=== PATIENT | male | born 1990 | race Caucasian/White ===

== ENCOUNTER 2019-10-19 10:42 | Emergency (ER) | payer MEDICAID, OTHER ==
[~2019-10-19] VITALS: Ht 180.3 cm; Wt 92.5 kg
[~2019-10-19 10:42] MED LIST: BAC15O TP; FLO0.4C PO
--- NOTE | 2019-10-19 11:27 | NUR ---
PT WANTS MEDICAL PHYSICAL TO CONTINUE OUTPATIENT TREATMENT. PT HAS BEEN IN TREATEMENT FOR 305 DAYS.
[2019-10-19 12:33] VITALS: BP 150/84
== END 2019-10-19 12:34 | disposition home or self-care (01) ==
LOC: ER 10:42
DX: Z02.89 Encounter for other administrative examinations (principal); Z79.899 Other long term (current) drug therapy
CPT/HCPCS: 99281

== ENCOUNTER 2024-01-12 19:17 | Emergency (ER) | payer MEDICAID ==
[~2024-01-12] VITALS: Ht 180.3 cm; Wt 90.9 kg
[~2024-01-12 19:17] MED LIST changes: +ALBU8.5H17 IH
[2024-01-13] MEDS ORDERED: ACET-812 PO (00:21)
[2024-01-13] MEDS ORDERED: IBUP-1984 PO (00:21)
[2024-01-13 00:29] VITALS: BP 146/111; PULSE 76; RESP 16; TEMP 98.3; O2SAT 97
[2024-01-19] MEDS ORDERED: PROP10TA10 PO (10:45)
[2024-01-19] MEDS ORDERED: FLUO-81 PO (10:45)
[2024-01-19] MEDS ORDERED: GABA-530 PO (10:45)
[2024-01-19] MEDS ORDERED: BUPR1FIL5 SL (10:45)
== END 2024-01-13 00:30 | disposition home or self-care (01) ==
LOC: ER 19:18
DX: S42.252A Displaced fracture of greater tuberosity of left humerus, initial encounter for closed fracture (principal); Z79.1 Long term (current) use of non-steroidal anti-inflammatories (NSAID); Z79.2 Long term (current) use of antibiotics; Z79.899 Other long term (current) drug therapy; W19.XXXA Unspecified fall, initial encounter; Y93.89 Activity, other specified; Y92.89 Other specified places as the place of occurrence of the external cause; Y99.8 Other external cause status
CPT/HCPCS: 73030; 99283; A4565

== ENCOUNTER 2024-01-20 11:58 | Day surgery (SDC) | payer MEDICAID ==
[2024-01-19 10:52] LABS: BASOPHILS % (AUTO) 0.4 % (0-1); EOSINOPHILS # (AUTO) 0.1 X10'3 (0-0.9); EOSINOPHILS % (AUTO) 1.7 % (0-6); LYMPHOCYTES # (AUTO) 2.2 X10'3 (1.1-4.8); LYMPHOCYTES % (AUTO) 28.7 % (21-51); MEAN CORPUSCULAR HEMOGLOBIN 31.4 PG (27.0-31.0); MEAN CORPUSCULAR HGB CONC 34.8 g/dL (33.0-36.5); MEAN PLATELET VOLUME 7.7 FL (7.4-10.4); MONOCYTES # (AUTO) 0.7 X10'3 (0-0.9); MONOCYTES % (AUTO) 9.5 % (2-12); NEUTROPHILS # (AUTO) 4.6 X10'3 (1.8-7.7); NEUTROPHILS % (AUTO) 59.7 % (42-75); PRE OP HEMATOCRIT 38.2 % (42.0-52.0); PRE OP HEMOGLOBIN 13.3 g/dL (14.0-17.9); PRE OP PLATELET COUNT 257 X10'3 (140-440); PRE OP WHITE BLOOD COUNT 7.8 10'3 (4.8-10.8); RED BLOOD COUNT 4.25 X10'6 (4.70-6.10); RED CELL DISTRIBUTION WIDTH 13.2 % (11.5-14.5)
[2024-01-19 11:01] LABS: ALBUMIN 3.4 G/DL (3.4-5.0); ALBUMIN/GLOBULIN RATIO 0.9 (1.1-1.5); ALKALINE PHOSPHATASE 80 IU/L (46-116); BLOOD UREA NITROGEN 17 MG/DL (7-18); BUN/CREATININE RATIO 18.1 (10.0-20.0); CALCIUM 8.1 MG/DL (8.5-10.1); CHLORIDE 103 MMOL/L (99-107); CREATININE 0.94 MG/DL (0.60-1.10); PRE OP ALT 17 U/L (30-65); PRE OP ANION GAP 6 (8-16); PRE OP AST 13 U/L (10-37); PRE OP BILIRUB, TOTAL 0.4 MG/DL (0.0-1.0); PRE OP GLUCOSE 89 MG/DL (70-104); PRE OP SODIUM 138 MMOL/L (135-145); TOTAL CARBON DIOXIDE 29.3 MMOL/L (24-32); TOTAL PROTEIN 7.4 G/DL (6.4-8.2); eGFR > 90 ML/MIN
[2024-01-20] VITALS (15 sets, daily range): BP systolic 118–156; BP diastolic 74–99; PULSE 52–105; RESP 7–17; TEMP 97.2; O2SAT 90–100
[~2024-01-20] VITALS: Ht 177.8 cm; Wt 10.0 kg
[2024-01-20] MEDS: cefazolin 2gm/D5W 100mL 100 ML IV ONE (05:30)
[~2024-01-20 11:58] MED LIST changes: -ALBU8.5H17 IH; -BAC15O TP; +BUPR1FIL5 SL; +DOCUMENT DATE & TIME OF BETA-BLOCKER PO ONE; -FLO0.4C PO; +FLUO-81 PO; +GABA-530 PO; +PROP10TA10 PO
[2024-01-20] MEDS ORDERED: OLAN2.5T28 PO (12:41)
[2024-01-20] MEDS: famotidine 20mg tablet PO ONE (12:47)
[2024-01-20] MEDS: ringers solution, lacted 1,000 ML IV SCH (12:47)
[2024-01-20] MEDS ORDERED: vancomycin 1,000mg inj ONE (13:29)
[2024-01-20] MEDS ORDERED: BUPIVAcaine 2.5mg/ml inj 50ml vial (contains preservative) ONE (13:29)
[2024-01-20] MEDS ORDERED: MIDAZolam 1 MG/ML 5ML VIAL ONE (13:57)
[2024-01-20] MEDS ORDERED: ROPIVAcaine 0.5% (5mg/ml) 30ml vial ONE (13:58)
[2024-01-20] MEDS ORDERED: propofol inj 20 ML IV ONE (13:58)
[2024-01-20] MEDS ORDERED: morphine 10mg/ml inj. ONE ×2 (13:58)
[2024-01-20] MEDS ORDERED: LIDOcaine 2% (20mg/ml) 5ml vial ONE (13:58)
[2024-01-20] MEDS ORDERED: acetaminophen 1,000mg/100ml IV 100 ML IV ONE (14:01)
[2024-01-20] MEDS ORDERED: sevoflurane 250ml liquid IH ONE (15:39)
[2024-01-20] MEDS ORDERED: ondansetron/PF 4mg/2ml inj ONE (16:02)
[2024-01-20] MEDS ORDERED: dexamethasone sod phosphate 4mg/ml inj. ONE (16:02)
[2024-01-20] MEDS ORDERED: morphine 2 MG/ML inj. syringe IV PRN (16:20)
[2024-01-20] MEDS ORDERED: labetalol 20mg/4ml (5mg/ml) syringe IV PRN (16:20)
[2024-01-20] MEDS ORDERED: morphine 4 MG/ML inj SYRINge IV PRN (16:20)
[2024-01-20] MEDS ORDERED: ringers solution, lacted 1,000 ML IV SCH (16:20)
[2024-01-20] MEDS ORDERED: ondansetron/PF 4mg/2ml inj IV PRN (16:20)
[2024-01-20] MEDS ORDERED: fentaNYL/PF 50MCG/1 ML 2ML syringe IV PRN ×2 (16:20)
[2024-01-20] MEDS ORDERED: hydrALAZINE 20mg/ml inj. IV PRN (16:20)
[2024-01-20] MEDS ORDERED: tranexamic acid 100mg/ml inj. ONE (16:38)
== END 2024-01-20 19:10 | disposition home or self-care (01) ==
LOC: PAS 11:58
PROVIDERS: ATTEND Orthopaedic Surgery Orthopaedic Trauma
DX: S42.252A Displaced fracture of greater tuberosity of left humerus, initial encounter for closed fracture (principal); G89.18 Other acute postprocedural pain; I10 Essential (primary) hypertension; F12.90 Cannabis use, unspecified, uncomplicated; Z87.891 Personal history of nicotine dependence; Z79.899 Other long term (current) drug therapy; Z98.890 Other specified postprocedural states; Z83.3 Family history of diabetes mellitus; Z80.9 Family history of malignant neoplasm, unspecified; X58.XXXA Exposure to other specified factors, initial encounter; Y93.89 Activity, other specified; Y92.89 Other specified places as the place of occurrence of the external cause; Y99.8 Other external cause status
CPT/HCPCS: 23630; 36415; 64415; 73060; 80053; 82948; 85025; A6222; C1713; J0131; J0690; J1100; J2250; J2274; J2405; J2704; J2795; J3370; J3490; J7030; J7120; Z7506; Z7508; Z7512; 76000; A4565; A4615; A4618; A6258; A6449; A7000

== ENCOUNTER 2025-08-20 06:26 | Emergency (ER) | payer MEDICAID ==
[~2025-08-20] VITALS: Ht 180.3 cm; Wt 101.4 kg
[~2025-08-20 06:26] MED LIST changes: -DOCUMENT DATE & TIME OF BETA-BLOCKER PO ONE; +OLAN2.5T77 PO
--- NOTE | 2025-08-20 09:28 | Physician Documentation ---
History of Present Illness ~ Chief Complaint: Abscess Stated Complaint: DENTAL ABSCESS Time Seen by MD: 09:04 OK to notify your PCP?: No Primary Medical Doctor: No PMD Source: patient Mode of Arrival: POV Exam Limitations: no limitations HPI Patient presents secondary to tooth problem. He has a broken tooth right lower quadrant and last night noted facial swelling. Has tried Orajel but no other interventions. He states he has had a broken tooth for quite some time. Does not have a dentist. No fevers or chills. No difficulty swallowing or breathing. No shortness a breath. Complaining of associated headaches. Tetanus Within 5 Years: Yes Medication Reconciliation Allergies: Coded Allergies: No Known Allergies (Unverified , 08/20/25) Scheduled Buprenorphine Hcl/Naloxone Hcl (Suboxone 4 Mg-1 Mg Sl Film), 1 STRIP SL ONCE, (Reported) Fluoxetine Hcl (Fluoxetine Hcl), 1 CAP PO QPM, (Reported) Olanzapine (Olanzapine), 1 TAB PO HS, (Reported) Penicillin V Potassium* (Penicillin VK*), 500 MG PO QID Propranolol Hcl* (Inderal*), 1 TAB PO QPM, (Reported) Scheduled PRN Gabapentin (Gabapentin), 1 CAP PO PRN PRN for pain, (Reported) Ibuprofen* (Motrin*), 600 MG PO TID PRN for pain Past Medical History Past Medical History: No Pertinent History Past Surgical History: noncontributory Smoking Status: Current every day smoker (vapes) Alcohol Use: Sober Drug Use: none Lives with: Family Lives In: Home 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 No apparent distress Oral exam: There is a broken tooth noted to the right lower quadrant molar. Has facial swelling. No definite abscess on palpation. No erythema of the gingiva. Posterior pharynx is without erythema or swelling. There is no tonsillar exudate. Respiratory: Lungs are clear to auscultation bilaterally. No respiratory distress. Chest: Normal shape and size. No accessory muscle use. Cardiovascular: Regular rate and rhythm. S1-S2. No murmur, gallop, rub. Psychiatric: Normal mood and affect. Skin: Normal color. Warm and dry. Progress Results/Orders Results/Orders Completed Orders - HANK ALBA NP Penicillin V Potassium Tablet (Penicilli (08/20/25 09:30) Ibuprofen Tablet (Motrin Tablet) (08/20/25 09:30) Ibuprofen Tablet (Motrin Tablet) (08/20/25 09:35) Medications Received in ER Medications (Trade) Dose Ordered Sig/Daphne Route PRN Reason Start Time Stop Time Status Last Admin Dose Admin (penicillin V potassium tablet) 500 mg ONCE ONCE PO 08/20/25 09:30 08/20/25 09:33 DC 08/20/25 09:40 500 MG (Motrin tablet) 600 mg ONCE ONCE PO 08/20/25 09:35 08/20/25 09:36 DC 08/20/25 09:40 600 MG Vital Signs 08/20/25 08/20/25 06:28 09:53 Temp 98.5 98.5 Pulse 85 80 Resp 18 16 B/P (MAP) 157/105 174/121 Pulse Ox 98 98 O2 Flow Rate 0 Medical Decision Making Additional information obtaine: N/A Findings Patient presents with right-sided facial pain and broken tooth. The tooth has been broken for some time but he has not had this problem. At night onset facial swelling. There is no difficulty swallowing. No evidence of peritonsillar abscess, Bernard's angina or any other acute emergency. Recommended ice, warm salt water rinses, ibuprofen and given antibiotics. Warning signs and symptoms were reviewed and reasons for return. Recommend that he follow up with a dentist. Differential Dx:Considerations: Include: Abscess, Other Departure Time of Disposition: 09:32 Impression: Primary Impression: Dental abscess Condition: Stable Discharge Instructions: Dental Abscess, [id number] Additional Instructions: I highly recommend that you get a dentist to take care of your tooth. In the meantime I recommend warm salt water rinses which can help with pain and discom fort. Take ibuprofen for pain. Take with food. Take your antibiotics as prescribed and to completion. You should not have leftover antibiotics. Return for worsening swelling, difficulty breathing or difficulty swallowing or any other concerns. One or more of your blood pressures was greater than 130/80. I recommend that you follow up with the primary care provider. Recommend home blood pressure monitoring. Referrals: NO PRIMARY CARE PROVIDER (PCP) Prescriptions Ibuprofen* (Motrin*) 400 Mg Tablet 600 MG PO TID PRN for pain, #20 TAB Prov: HANK ALBA NP 08/20/25 Penicillin V Potassium* (Penicillin VK*) 500 Mg Tablet 500 MG PO QID, #40 TAB Prov: HANK ALBA NP 08/20/25 Education Educated: Patient Educated regarding: diagnosis, treatment, need for follow up Signature Scribe Signature: No scribe Attestation: The note accurately reflects work and decisions made by me.Hank Alba - ELIDIA 08/20/25 12:09 This note was created with the assistance of voice recognition software whereby errors in grammar, syntax, and/or spelling may have occurred despite active proofreading efforts by the author. Please do not hesitate to contact the provider for clarification or for questions regarding the content of this document. HANK ALBA NP Aug 20, 2025 09:28
[2025-08-20] MEDS ORDERED: IBUP-1984 PO (09:35)
[2025-08-20] MEDS ORDERED: PENI500T2 PO (09:35)
[2025-08-20] MEDS: penicillin V potassium 500mg tablet PO ONE (09:40)
[2025-08-20] MEDS: ibuprofen tablet 400 MG TABLET PO ONE (09:41)
[2025-08-20 09:53] VITALS: BP 174/121; PULSE 80; RESP 16; TEMP 98.5; O2SAT 98
== END 2025-08-20 09:59 | disposition home or self-care (01) ==
LOC: ER 06:27
DX: K04.7 Periapical abscess without sinus (principal); F17.290 Nicotine dependence, other tobacco product, uncomplicated; F15.90 Other stimulant use, unspecified, uncomplicated; Z79.899 Other long term (current) drug therapy
CPT/HCPCS: 99283